=== PATIENT | male | born 1990 | race American Indian/Alaskan Native ===

== ENCOUNTER 2019-03-01 11:39 | Emergency (ER) | payer OTHER ==
[2019-03-01 12:33] VITALS: BP 114/63
--- NOTE | 2019-03-01 15:35 | Emergency Department Report ---
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 Complaining of some mid right sided and lower back pain. Patient states that he woke up yesterday morning with a stiff back. He was able to go to work and do his job without any issue. Last night as he was lying down his back started to stiffen. He used a heating pack and this morning states that the pain was much much worse. He is unable to go to work today. He denies any bowel or bladder dysfunction erectile dysfunction or radiation of the pain down his legs fevers chills nausea or vomiting. He also denies any trauma. Pain is aching in nature and worse with movement better with rest and has 3 out of 10 in severity. Patient took tramadol that he had at the house which did not help. - Related Data Previous Rx's Medication Instructions Recorded Last Taken Type Diclofenac [Voltareclaudia Grover] 75 mg PO Q12H #20 tablet 03/16/15 Unknown Rx Acetaminophen/Codeine [Tylenol #3] 1 tab PO Q6H PRN #20 tab 10/05/15 Unknown Rx predniSONE [Deltasone] 50 mg PO QDAY #5 tab 06/12/18 Unknown Rx Allergies Allergy/AdvReac Type Severity Reaction Status Date / Time No Known Allergies Allergy Verified 03/01/19 11:44 ED Review of Systems ROS: Stated complaint: LWR (R) SIDE OF BACK/CHEST PAIN/SOB/FRONT (R) ABD Other details as noted in HPI Comment: All other systems reviewed and negative ED Past Medical Hx Family history: no significant family history ED Back Pain Physical Exam - Exam General: Vital signs noted. No distress. Alert and acting appropriately. Back/Abdomen: Yes Perithoracic Tenderness (right sided), Yes Perilumbar Te nderness, No Abdominal Tenderness, No Sacroiliac Tenderness, No Flank Tenderness, No Straight Leg Raise Pain Neuro: Yes Normal Sensation, Yes Normal DTR's, Yes Normal Gait, No Motor Weakness ED Course Vital Signs 03/01/19 12:32 Temperature 98.3 F Pulse Rate 75 Respiratory 18 Rate Blood Pressure 114/63 [Right] O2 Sat by Pulse 96 Oximetry ED Medical Decision Making - Medical Decision Making Patient with muscular skeletal back pain. He has no midline tenderness. There is no clinical evidence of cauda equina. She has no trauma. Patient is to use [id number] Motrin for pain. Patient does not have a acute medical emergency at this time. Patient be given follow-up with Dr. Butler as needed. He is also to ice his back. Critical care attestation.: If time is entered above; I have spent that time in minutes in the direct care of this critically ill patient, excluding procedure time. ED Disposition Clinical Impression: Back strain Disposition: MED SCREENING EXAM-LEFT Is pt being admited?: No Does the pt Need Aspirin: No Condition: Stable Instructions: Low Back Strain (ED) Additional Instructions: Please take 800 mg of Motrin [id number] every 6 hours for pain. Please ICE your back 3x daily back. Referrals: CEE BUTLER MD [Staff Physician] - 3-5 Days Forms: Work/School Release Form(ED)
== END 2019-03-01 15:42 | disposition left against medical advice (07) ==
LOC: ED 11:39
DX: S39.012A Strain of muscle, fascia and tendon of lower back, initial encounter (principal); X58.XXXA Exposure to other specified factors, initial encounter; Y93.89 Activity, other specified; Y92.89 Other specified places as the place of occurrence of the external cause; Y99.8 Other external cause status
CPT/HCPCS: 99281

== ENCOUNTER 2019-04-02 13:41 | Emergency (ER) | payer OTHER ==
[2019-04-02 14:11] VITALS: BP 110/45
--- NOTE | 2019-04-02 14:11 | Event Note ---
ED Screening Note Date of service: 04/02/19 Time: 14:10 ED Screening Note: 28 y o male resents with lac from a poerdrill injury into left hand This initial assessment/diagnostic orders/clinical plan/treatment(s) is/are subject to change based on patients health status, clinical progression and re- assessment by fellow clinical providers in the ED. Further treatment and workup at subsequent clinical providers discretion. Patient/guardian urged not to elope from the ED as their condition may be serious if not clinically assessed and managed. Initial orders include: xr tetanus lac repair
[2019-04-02] MEDS ORDERED: TETANUS,DIPH,PERTUSS(ACELL) VACCINE 0.5 ML SYRINGE IM ONE (14:12)
[2019-04-02] MEDS ORDERED: HYDROcodone/ACETAMINOPHEN 5-325 MG TAB PO ONE (14:35)
[2019-04-02] MEDS ORDERED: SODIUM CHLORIDE 0.9% IRR 500 ML BOTTLE IR ONE (14:35)
[2019-04-02] MEDS ORDERED: ceFAZolin 1 GM VIAL IM ONE (14:36)
--- NOTE | 2019-04-02 14:44 | XRay Report ---
LEFT HAND, 3 VIEWS INDICATION: drill injury. COMPARISON: None. IMPRESSION: Normal bone mineralization. Soft tissue injury with bandage is noted on the dorsal/media l surface of the hand. No radiopaque foreign body, bony injury or joint pathology is identified. Signer Name: Kevin Tim Jr, MD Signed: 04/02/2019 2:40 PM Workstation Name: [id number]
--- NOTE | 2019-04-02 14:49 | Emergency Department Report ---
ED Laceration HPI - HPI Chief Complaint: Wound/Laceration Stated Complaint: LFT HAND GASH/PAIN Time Seen by Provider: 04/02/19 14:09 Occurred When: Today Location: Upper Extremity Severity: mild Tetanus Status: Not up to Date Laceration Symptoms: No Foreign Body Sensation, No Numbness, No Weakness, No Pain Other History: 28 YO MALE COMES TO ER P CUTTING HIS L HAND WITH A DRILL WHILE AT WORK. BLEEDING CONTROLLED. NO OTHER INJURY. 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 ROS: Stated complaint: LFT HAND GASH/PAIN Other details as noted in HPI Comment: All other systems reviewed and negative ED Past Medical Hx - Past Medical History Previous Medical History?: No Hx Hypertension: No Hx CVA: No Hx Heart Attack/AMI: No Hx Congestive Heart Failure: No Hx Diabetes: No Hx Deep Vein Thrombosis: No Hx Pulmonary Embolism: No Hx GERD: No Hx Liver Disease: No Hx Renal Disease: No Hx Sickle Cell Disease: No Hx Arthritis: No Hx Headaches / Migraines: No Hx Seizures: No Hx Kidney Stones: No Hx Psychiatric Treatment: No Hx Asthma: No Hx COPD: No Hx Tuberculosis: No Hx Dementia: No Hx HIV: No - Surgical History Past Surgical History?: No Hx Coronary Stent: No Hx Open Heart Surgery: No Hx Pacemaker: No Hx Internal Defibrillator: No Hx Cholecystectomy: No Hx Appendectomy: No Hx Breast Surgery: No - Family History Family history: no significant - Social History Smoking Status: Never Smoker Substance Use Type: None - Medications Home Medications: Home Medications Medication Instructions Recorded Confirmed Last Taken Type Ibuprofen [Motrin] 800 mg PO Q8HR PRN #30 tablet 04/02/19 Unknown Rx cephALEXin [Keflex] 500 mg PO Q12HR #20 cap 04/02/19 Unknown Rx Laceration Physical Exam - Exam General: Vital signs noted. No distress. Alert and acting appropriately. Wound Length (cm): 3 Laceration Location: Upper Extremity Full Body Front + Back: 1 - LAC Laceration Exam: Yes Normal Distal CMS, No Foreign Body, No Exposed Tendon, Vessel, or Nerve, No Tendon Injury ED Course Vital Signs 04/02/19 14:09 Temperature 98.1 F Pulse Rate 93 H Respiratory 20 Rate Blood Pressure 110/45 [Right] O2 Sat by Pulse 97 Oximetry - Laceration /Wound Repair L HAND Wound Location: upper extremity Wound Length (cm): 3 Wound's Depth, Shape: superficial Wound Explored: CONTUSED TISSUE, IRREGULAR EDGES Irrigated w/ Saline (ccs): 100 Betadine Prep?: Yes Wound Debrided: minimal Wound Repaired With: Dermabond Layer Closure?: No Sterile Dressing Applied?: Yes Progress: TOLERATED WELL ED Medical Decision Making - Medical Decision Making WOUND CLEANED AND CLOSED TDAP AND ANCEF IN ER XRAY NEG FOR FX FULL ROM NEUROVASC INTACT DC HOME WITH AND DC PLAN OF CARE. FOLLOW UP WITH PCP. Vital Signs 04/02/19 14:09 Temperature 98.1 F Pulse Rate 93 H Respiratory 20 Rate Blood Pressure 110/45 [Right] O2 Sat by Pulse 97 Oximetry - Differential Diagnosis SIMPLE LAC Critical care attestation.: If time is entered above; I have spent that time in minutes in the direct care of this critically ill patient, excluding procedure time. ED Disposition Clinical Impression: Laceration, Contusion Disposition: DC-01 TO HOME OR SELFCARE Is pt being admited?: No Does the pt Need Aspirin: No Condition: Stable Instructions: Laceration (ED) Additional Instructions: ICE KEEP CLEAN AND COVERED CLEAN WITH SOAP AND WATER EVERY 12 HOURS LIMIT MOVEMENT OF THE HAND FOR 24 HOURS YOU CAN NOT USE L HAND FOR APPROX 1 WEEK UNTIL THE WOUND HEALS. WORK WILL NEED TO MODIFY YOUR WORK. YOU CAN USE RIGHT HAND. MOTRIN OR TYLENOL FOR PAIN MED ORDERED TODAY FOLLOW UP WITH PCP IF IT GETS RED, SWOLLEN, OR HAD DRAINAGE REFERRAL BELOW Prescriptions: cephALEXin [Keflex] 500 mg PO Q12HR #20 cap Ibuprofen [Motrin] 800 mg PO Q8HR PRN #30 tablet PRN Reason: Pain, Moderate (4-6) Referrals: KUMAR LENTZ MD [Staff Physician] - 3-5 Days Time of Disposition: 14:47
== END 2019-04-02 15:45 | disposition home or self-care (01) ==
LOC: ED 13:41
DX: S61.412A Laceration without foreign body of left hand, initial encounter (principal); Z79.899 Other long term (current) drug therapy; W29.8XXA Contact with other powered hand tools and household machinery, initial encounter; Y93.89 Activity, other specified; Y92.89 Other specified places as the place of occurrence of the external cause; Y99.8 Other external cause status
CPT/HCPCS: 12002; 73130; 90471; 90715; 96372; 99283; J0690